=== PATIENT | male | born 2000 | race Caucasian/White ===

== ENCOUNTER 2024-10-31 21:16 | Emergency (ER) | payer MEDICAID, SELFPAY ==
[2024-10-31 21:19] VITALS: BP 103/64; PULSE 64; PULSE 69; RESP 17; TEMP 36.9; O2SAT 98
[2024-10-31 21:20] VITALS: BMI 27.3
--- NOTE | 2024-10-31 21:24 | EKG_ITS ---
[facility] Test Date: 2024-10-31 Pat Name: JAMES CALVO Department: Room: - Gender: Male [employer] Founder: : 2000 Requested By: Gutierrez Major Order Number: [id number] Reading MD: Gutierrez Major Measurements Intervals [place] Rate: 60 P: 36 FL: 149 QRS: 59 QRSD: 104 T: 51 QT: 395 QTc: 395 Interpretive Statements SINUS RHYTHM No previous ECG available for comparison /store/S0/[id number].pdf
--- NOTE | 2024-10-31 21:33 | XR_ITS ---
Examination: CT cervical spine without contrast 2-D sagittal reconstructions 2-D coronal reconstructions 3-D reconstructions. Exam date and time:October 31, 2024, 10:50 PM INDICATIONS: Injury to the neck today, neck pain CTDI:vol (mGy) 8.76 DLP: (mGycm) 178 Technique: Multiple 2 mm axial sections of the cervical spine have been obtained. The coronal and sagittal reconstructions have been obtained. 3-D reconstructions have been obtained. Low dose protocols were performed. One or more of the following dose reduction techniques were used; automated exposure control, adjustment of the mA and/or KV according to patient size, use of iterative reconstruction technique. Findings: Axial sections demonstrate intact base of the skull. C1 exhibit satisfactory relationship to the odontoid. No acute cervical vertebral body fracture seen. Alignment posterior spinous processes satisfactory. Impression: No acute cervical fracture.
--- NOTE | 2024-10-31 21:33 | XR_ITS ---
Examination: CT brain head without contrast. 2-D sagittal coronal reconstructions Date and time of exam:October 31, 2024, 10:52 PM INDICATIONS: Syncopal episodes today CTDI: vol (mGy):51 DLP: (mGycm):1081 Technique: Multiple CT axial sections of the brain have been obtained, 5 mm slice thickness. Contrast has not been administered. 2-D sagittal, coronal reconstructions have been obtained Low dose protocols were performed. One or more of the following dose reduction techniques were used; automated exposure control, adjustment of the mA and/or KV according to patient size, use of iterative reconstruction technique. Findings: No significant ventricular enlargement. Intra-axial or extra-axial hemorrhage density is not seen. No mass effect or midline shift Basal cisterns are not remarkable. Fourth ventricle is midline. Cranial vault intact. Impression: Negative for acute hemorrhage, mass effect or midline shift
--- NOTE | 2024-10-31 21:34 | EDNOTE_ITS ---
ED Syncope RME/HPI General Chief Complaint: Syncope / Near Syncope Stated Complaint: SYNCOPE Time Seen by Provider: 10/31/24 21:31 Arrival date/time: 10/31/24 21:16 A 24-year-old male presents to the emergency room via EMS with complaints of multiple syncopal episodes while at home. The patient reports that his friends were able to catch him before he fell to the ground. He denies any cardiac issues or significant past medical history and has no prior health concerns. His blood glucose level is 99, and he denies any history of drug or alcohol abuse. SEVERITY: Symptoms are described as being severe with limitations on activities of daily living CONTEXT: The patient is unable to identify any inciting events. DURATION/TIMING: The symptoms started approximately [employer] SYMPTOMS: dizziness prior to syncope episode MODIFYING FACTORS: The patient is unable to identify any alleviating or aggrava ting symptoms. PERTINENT ROS: no fevers, no cough, no pleuritic pain, no ripping or tearing sensations, denies any lower extremity edema and no unilateral swelling, no chest pain/shortness of breath no nausea,vomiting, diarrhea, no headache no rash no abd/back pain no blood thinner uses, head/neck injury REVIEW OF SYSTEMS: See History of Present Illness - with the exception of those mentioned in the history of present illness, all other systems reviewed and reported as negative GENERAL: In general the patient is awake, interactive, in an emergency department gurney. HEAD/EYES/EARS/NOSE/THROAT: normo-cephalic, atraumatic, mucus membranes are moist, anicteric, palpebral conjunctiva is pink, trachea is midline. CARDIOVASCULAR: regular rate and regular rhythm, no murmurs, heart sounds are not distant, strong pulses in all four extremities that are equal and symmetric bilateral upper and lower extremities, normal capillary refill. CHEST/PULMONARY: normal chest rise and fall, good air movement, clear to auscultation bilaterally, normal inspiratory to expiratory ratios without evidence of respiratory distress. NECK: No midline/Paraspinal tenderness, no step off ROM/Strenght intact No Kernig and bruzinski sign. No trauma ABDOMEN: soft, not tender, no masses appreciated BACK: normal range of motion without pain. NEUROLOGICAL: cranio-facial features are symmetric, moves all four extremities equally without obvious limitations or weakness. EXTREMITY: no tenderness to palpation over the long bones or large joints of the bilateral upper and lower extremities, no joint swelling, no joint erythema, no signs of trauma, no unilateral leg swelling and no peripheral edema. SKIN: warm, dry, well-perfused, no jaundice, no rash, no telangiectasias or petechia. PSYCH: calm, cooperative, no evidence of psychosis or agitation Related Data Allergies Allergy/AdvReac Type Severity Reaction Status Date / Time No Known Allergies Allergy Verified 10/31/24 21:23 Course Course Course Narrative: CT head, CT cervical, EKG, Trop, Basic labs, IV fluids Quality Measures none Orders Category Date Time Status Bedside Influenza A&B Antigen Test NOW Care 10/31/24 21:46 Completed EKG (ED ONLY) *Do not use* NOW Care 10/31/24 21:24 Completed Orthostatic Vitals X1 Care 10/31/24 22:[address] cervical spine wo con Stat Exams 10/31/24 21:[address] head/brain wo con Stat Exams 10/31/24 21:33 Completed EKG (ED Only) Stat Exams 10/31/24 21:24 Draft XR chest 2V Stat Exams 10/31/24 21:46 Completed BNP [B-Type Natriuretic Peptide] Stat Lab 10/31/24 21:47 Completed CBC Stat Lab 10/31/24 21:47 Completed CMP [Comprehensive Metabolic Panel] Stat Lab 10/31/24 21:47 Completed Troponin I Stat Lab 10/31/24 21:47 Completed Sodium Chloride 0.9% 1000 ml [Ns] 1,000 ml Med 10/31/24 21:44 Discontinued IV 999 mls/hr Vital Signs Vital signs: Vital Signs Temperature 98.5 F 10/31/24 21:19 Pulse Rate 69 10/31/24 21:19 Respiratory Rate 17 10/31/24 21:19 Blood Pressure 103/64 10/31/24 21:19 Pulse Oximetry (%) 98 10/31/24 21:19 Oxygen Delivery Method Room Air 10/31/24 21:19 Procedures -ED EKG Interpretation #1: Date of EK10/31/24 Time of EK:28 Rate: 60 Interpretation: Reviewed by me EKG Impression: Normal sinus rhythm, No acute ST-T changes, No ectopy, No ischemic changes, Normal QRS and Normal intervals Syncope MDM Narrative MDM Narrative:: [address] and labs pending Patient data External records reviewed:: [facility] previous records Clinical information provided by:: patient and EMS Social determinants that could affect healthcare access:: none Patient has the following chronic illnesses:: n/a How is presenting disease/condition affected by chronic disease/condition?: no chronic disease Evaluation data The following diagnostics were reviewed and interpreted by me:: lab results, radiology exam(s) and EKG tracing(s) Lab and/or radiology exams considered but not ordered:: n/a Interpretation Summary: xray: FINDINGS: Normal heart size. Lungs are clear. The osseous structures are intact IMPRESSION: No active disease Cbc/cmp wnl bnp wnl trop wnl CT head/Neck pending Ortho static vital pending review chart, was discharge, CT head/neck wnl Medications / Prescriptions Medications or Prescriptions considered but not ordered:: n/a Medication administrations:: Medication Administration History Discontinued Medications Sodium Chloride (Ns) 1,000 mls @ 999 mls/hr IV .Q1H1M ONE Stop: 10/31/24 22:44 Last Infusion: 10/31/24 23:30 Dose: Infused Documented By: Admin: 10/31/24 21:56 Dose: 999 mls/hr Documented By: CCT as stated above Consultations Consultation(s) initiated? (list below): No Diagnosis Syncope Differential Diagnosis: syncope due to orthostatic hypotension, vasovagal syncope (hypoglycemia, anemia, influenza , pna ), subarachnoid hemorrhage, dehydration and other (mi/nstemi ) Most likely diagnosis given after review of the tests above:: syncope Admission Indicated Admission indicated?: not indicated Admission Request Was there a request for admission?: No Disposition Plan Disposition Plan: Discharge Discharge Attestation Discharge Attestation: The patient and all family members were given an opportunity to ask questions and understood the discharge instructions. Discharge instructions specifically effects, indications for sooner follow up or return to the emergency department, and the expected course of current diagnosis. Patient condition: Stable Discharge Plan Plan Patient Disposition: HOME (Self Care) Prescriptions/Referrals Referrals: No Primary/Family,Physician [Primary Care Provider] - In 1 week Problem List Clinical Impression: Syncope Patient/Caregiver Discharge Instructions Discharge Activity: activity as tolerated Education Materials: ED Fainting, Uncertain Cause Additional Instructions: Discharge instructions from Dr. Burgess: 1. After extensive evaluation, there is no life-threatening condition.? Such as stroke or brain tumor or heart attack or pneumothorax (collapsed lung). 2. Make sure to eat regular nutritious meals. For good hydration, increase oral fluid and maintain clear urine. If dark or yellow, increase oral fluid. 3. Until cleared by a doctor, avoid activity alone to prevent severe injury if he were to pass out again. 4. See a private doctor on 11/01/2024. Because we need to figure out why this happened. To make sure there is no serious underlying heart condition, ask to help you get more tests for your heart that cannot be done here in the ER.? Such as Holter Monitor (cardiac monitoring at home from a day to even a month), heart stress test (on treadmill or with medication), echocardiogram (imaging of your heart structures), heart catherization (checking for blockages in your heart arteries), and a referral to see a Slab Stripper. Ask for help with referral to see neurologist. 5. Seek immediate medical care with worsening or with any concerns.?? Print Language: Kittitian Stand Alone Forms: [employer] Award Info., Patient Portal Info Letter
--- NOTE | 2024-10-31 21:46 | XR_ITS ---
Examination: PA lateral chest 2 views TECHNIQUE: Upright PA and lateral chest 2 views Standing time: October 31, 20242055 hours INDICATIONS: Syncopal episodes today FINDINGS: Normal heart size. Lungs are clear. The osseous structures are intact IMPRESSION: No active disease
[2024-10-31] MEDS: SODIUM CHLORIDE 0.9% 1000 ML 1,000 ML 999 ML IV (21:56)
[2024-10-31 21:57] LABS: Basophils % (Auto) 1 % (0-2.5); Eosinophils # (Auto) 0.1 Thou/mm3 (0.0-0.5); Eosinophils % (Auto) 1 % (0-10); Hematocrit 40.7 % (41.0-53.0); Immature Granulocytes % (Auto) 0 % (0-0); Immature Granulocytes Auto 0.02 Thou/mm3 (0.00-0.00); Lymphocytes # (Auto) 1.8 Thou/mm3 (1.0-4.8); Lymphocytes % (Auto) 25 % (10-50); Mean Corpuscular HGB Conc 34.4 g/dl (31.0-37.0); Mean Corpuscular Hemoglobin 30.4 pg (25.0-35.0); Mean Corpuscular Volume 88 fL (80-100); Monocytes # (Auto) 0.6 Thou/mm3 (0.0-0.8); Monocytes % (Auto) 9 % (0-12); Neutrophils # (Auto) 4.6 Thou/mm3 (1.8-7.7); Neutrophils % (Auto) 63 % (37-80); Nucleated Red Blood Cell % 0 /100 WBC (0); Platelet Count 216 Thou/mm3 (140-440); RDW Standard Deviation 41.1 fL (35.1-43.9); Red Blood Count 4.61 Miln/mm3 (4.50-5.90); White Blood Count 7.2 Thou/mm3 (3.8-10.6)
[2024-10-31 22:12] VITALS: BP 100/62; BP 101/61; BP 103/58; PULSE 59; PULSE 64; PULSE 67
[2024-10-31 22:19] LABS: Alanine Aminotransferase 14 U/L (10-49); Albumin, Serum 4.2 gm/dL (3.5-5.0); Alkaline Phosphatase 78 U/L (46-116); Anion Gap 8 (7-16); Aspartate Amino Transferase 18 U/L (0-34); BUN/Creatinine Ratio 11 Ratio (12-20); Bilirubin,Total 0.2 mg/dL (0.3-1.2); Blood Urea Nitrogen 9 mg/dL (9-23); Calcium 8.7 mg/dL (8.3-10.6); Calcium (Corrected) 8.7 mg/dL (8.5-10.1); Carbon Dioxide 24.2 mMol/L (20.0-31.0); Chloride 107 mMol/L (98-107); Creatinine (Component) 0.8 mg/dL (0.6-1.3); Estimated Creatinine Clearance 138.9 mL/min (>60); Globulin 2.1 gm/dL (2.3-3.5); Glucose 103 mg/dL (74-106); Osmolality,Calculated 276 (275-295); Potassium 3.8 mMol/L (3.4-5.1); Sodium 139 mMol/L (136-145); Total Protein 6.3 gm/dL (5.7-8.2); Troponin I < 0.002 ng/mL (0.0-0.045); eGFR > 60 See Note
[2024-10-31 22:20] LABS: B-Type Natriuretic Peptide 25 pg/mL (0-100)
[2024-11-01 00:21] VITALS: BP 105/65; PULSE 62; RESP 17; TEMP 36.5; O2SAT 97
--- NOTE | 2024-11-01 00:40 | PD.EDADDENDU ---
Emergency Room Addendum Addendum Narrative: I took over the care from RODRIGO Han at 11 PM on 10/31/2024, see his notes for complete H&P and ED course. Patient presented after 2 syncopal episode just prior to arrival. Sustained no injuries because family/friends caught him both times. Orthostatic vitals negative. I reviewed all diagnostic test results. My interpretation of the EKG is sinus rhythm with no acute ST?T changes. My interpretation of the chest x-ray is no acute findings. My review of the head and cervical spine CT reports is no acute findings. Blood tests unremarkable. At this point, diagnoses include syncope with no unclear etiology. He remained stable. Recommended more outpatient workup. Based on my best medical judgment, made decision no further evaluation or treatment indicated at this time. Patient understands and agrees to the discharge instructions customized and printed, see below. Discharge instructions from Dr. Burgess: 1. After extensive evaluation, there is no life-threatening condition.? Such as stroke or brain tumor or heart attack or pneumothorax (collapsed lung). 2. Make sure to eat regular nutritious meals. For good hydration, increase oral fluid and maintain clear urine. If dark or yellow, increase oral fluid. 3. Until cleared by a doctor, avoid activity alone to prevent severe injury if he were to pass out again. 4. See a private doctor on 11/01/2024. Because we need to figure out why this happened. To make sure there is no serious underlying heart condition, ask to help you get more tests for your heart that cannot be done here in the ER.? Such as Holter Monitor (cardiac monitoring at home from a day to even a month), heart stress test (on treadmill or with medication), echocardiogram (imaging of your heart structures), heart catherization (checking for blockages in your heart arteries), and a referral to see a Lead Nuclear Medicine Technologist. Ask for help with referral to see neurologist. 5. Seek immediate medical care with worsening or with any concerns.?? Gutierrez Burgess MD
--- NOTE | 2024-11-01 01:00 | PC.NURSE ---
Pt has discharge orders; however, waiting for ride home. Due to pt chief compliant, unsafe to discharge pt to the lobby.
[2024-11-01 03:00] VITALS: BP 117/77; PULSE 62; RESP 18; TEMP 36.7; O2SAT 98
--- NOTE | 2024-11-01 03:35 | PC.NURSE ---
Pt is awake/alert/orientedx3. No s/s of acute distress noted. Pt still waiting for ride.
--- NOTE | 2024-11-01 05:00 | PC.NURSE ---
Pt resting with eyes closed. Respirations are even and unlabored. No s/s of acute distress noted. Call light within reach, pt still waiting for ride home.
[2024-11-01 06:00] VITALS: BP 112/64; PULSE 65; RESP 18; TEMP 36.6; O2SAT 97
[2024-11-01 06:15] VITALS: BP 112/64; PULSE 65; RESP 18; TEMP 36.6; O2SAT 97
== END 2024-11-01 06:15 | disposition home or self-care (01) ==
PROVIDERS: Physician Assistant; Emergency Provider Emergency Medicine
DX: R55 Syncope and collapse (principal); S19.9XXA Unspecified injury of neck, initial encounter; W19.XXXA Unspecified fall, initial encounter; R42 Dizziness and giddiness
CPT/HCPCS: 36415; 70450; 71046; 72125; 80053; 83880; 84484; 85025; 87400; 93005; 96360; 96361; 99284; J7030